=== PATIENT | female | born 1970 | race Caucasian/White ===

== ENCOUNTER 2016-08-17 05:17 | Inpatient (IN) | payer BC ==
[2016-08-14 16:33] VITALS: BMI 26.9
[~2016-08-17] VITALS: Ht 154.9 cm; Wt 64.0 kg
[2016-08-17] VITALS (19 sets, daily range): BP systolic 97–132; BP diastolic 54–82; PULSE 64–103; RESP 12–25; Ht 154.9 cm; Wt 64.0 kg
[2016-08-17] MEDS ORDERED: LIDOCAINE 0.5%/EPI (MDV) 50 ML INJ ONE (06:30)
[2016-08-17] MEDS ORDERED: BUPIVACAINE 0.5% (SDV) 30 ML INJ ONE (06:30)
[2016-08-17] MEDS ORDERED: GELATIN SIZE 100 SPONGE ONE (06:30)
[2016-08-17] MEDS ORDERED: THROMBIN 5000 UNIT VIAL ONE (06:30)
[2016-08-17] MEDS ORDERED: HEPARIN 1000 UNITS/ML 10 ML INJ ONE (06:42)
[2016-08-17] MEDS ORDERED: PROPOFOL 20 ML ONE (07:14)
[2016-08-17] MEDS ORDERED: SUCCINYLCHOLINE CHLORIDE 100 MG/5 ML SYG IV ONE (07:14)
[2016-08-17] MEDS ORDERED: MIDAZOLAM 1 MG/ML 2 ML INJ ONE (07:14)
[2016-08-17] MEDS ORDERED: LIDOCAINE 2% (SDV) 5 ML INJ ONE (07:14)
[2016-08-17] MEDS ORDERED: FENTAnyl 50 MCG/ML VIAL ONE (07:14)
[2016-08-17] MEDS ORDERED: SCOPOLAMINE 1.5 MG PATCH ONE (07:15)
[2016-08-17] MEDS ORDERED: CEFAZOLIN 1 GM INJ ONE (07:30)
--- NOTE | 2016-08-17 07:52 | HPN ---
Date/Time of Note Date/Time of Note DATE: 08/17/16 TIME: 07:51 Interval H&P Admission Note Pt. seen H&P reviewed: No system changes JENNIFER GONZALEZ MD Aug 17, 2016 07:52
[2016-08-17] MEDS ORDERED: KETAMINE 500 MG INJ ONE (08:47)
[2016-08-17] MEDS ORDERED: METOCLOPRAMIDE 10 MG INJ ONE (09:00)
[2016-08-17] MEDS ORDERED: DEXAMETHASONE 4 MG/ML 1 ML INJ ONE (09:00)
[2016-08-17] MEDS ORDERED: ONDANSETRON 4 MG INJ ONE (09:00)
[2016-08-17] MEDS ORDERED: EPHEDrine SULFATE 50 MG/5 ML SYG ONE (09:06)
[2016-08-17] MEDS ORDERED: ACETAMINOPHEN 1000MG/100ML IV 100 ML ONE (09:15)
[2016-08-17] MEDS ORDERED: HYDROmorphONE 2 MG/ML SYG ONE ×2 (09:18→11:21)
[2016-08-17] MEDS ORDERED: THROMBIN(HUM PLAS)/FIBRINOG/CA 5 ML VIAL TOP ONE (09:34)
[2016-08-17] MEDS ORDERED: GELATIN COMPRESSED 100CM SPONGE TOP ONE (09:47)
[2016-08-17] MEDS ORDERED: THROMBIN 5000 UNIT VIAL TOP ONE (09:48)
[2016-08-17] MEDS ORDERED: ROPIVACAINE 0.2% 20 ML VIAL ONE (10:13)
[2016-08-17] MEDS ORDERED: CEFAZOLIN 1 GM/50 ML (PMX) 50 ML IVPB SCH (10:30)
[2016-08-17] MEDS ORDERED: NALOXONE (0.4 MG/ML) INJ IV PRN (10:30)
[2016-08-17] MEDS ORDERED: HYDROCODONE/APAP (10/325) TAB PO PRN (10:30)
[2016-08-17] MEDS ORDERED: BISACODYL 10 MG SUPP PR PRN (10:30)
[2016-08-17] MEDS ORDERED: LABETALOL HCL 20MG INJ ONE (10:36)
[2016-08-17] MEDS ORDERED: LORAZEPAM 2 MG INJ IV PRN ×2 (11:00→13:00)
[2016-08-17] MEDS ORDERED: oxyCODONE 5 MG TAB PO PRN (11:00)
[2016-08-17] MEDS ORDERED: hydrALAzine 20 MG INJ IV PRN (11:00)
[2016-08-17] MEDS ORDERED: HYDROmorphONE (0.2 MG/ML) 10ML SYG IV PRN ×2 (11:00)
[2016-08-17] MEDS ORDERED: PROCHLORPERAZINE 10 MG INJ IV PRN (11:00)
[2016-08-17] MEDS ORDERED: MEPERIDINE 25 MG INJ IV PRN (11:00)
[2016-08-17] MEDS ORDERED: ONDANSETRON 4 MG INJ IV PRN ×2 (11:00→18:00)
[2016-08-17] MEDS ORDERED: FENTAnyl 50 MCG/ML VIAL IV PRN (11:00)
[2016-08-17] MEDS ORDERED: LABETALOL HCL 20MG INJ IV PRN (11:00)
[2016-08-17] MEDS ORDERED: DIPHENHYDRAMINE 50 MG INJ IV PRN (11:00)
--- NOTE | 2016-08-17 12:55 | RADRPT ---
PROCEDURE: XR Abdomen. CLINICAL INDICATION: Abdomen pain. Postop spine surgery. TECHNIQUE: AP supine abdomen x-ray. COMPARISON: None. FINDINGS: The bowel gas pattern is normal. There is no evidence of obstruction. There are no abnormal calcifications overlying the urinary tracts. There has been prior surgery with hardware at the L5-S1 level. A Gottlieb catheter is present in the b ladder. IMPRESSION: 1. Prior fusion at L5-S1. 2. Gottlieb catheter in the bladder. 3. Otherwise unremarkable study. RPTAT: QQ .Servando Weiss MD, MD Date Time Electronically viewed and signed by .Servando Weiss MD, MD on 08/17/2016 12:55 .R/
--- NOTE | 2016-08-17 12:56 | RADRPT ---
PROCEDURE: Intraoperative imaging of the lumbar spine with fluoroscopy. CLINICAL INDICATION: Back pain. Intraoperative. TECHNIQUE: 3 images of the lumbar spine were obtained in the operating room with an image intensif ier. No radiologist was in attendance. 20.3 seconds of fluoroscopy time was used. COMPARISON: No prior study is available for comparison. FINDINGS: For the purposes of this report, the last apparent true disc level is considered to be L5-S1. Based on this, images demonstrate fusion at L5-S1. IMPRESSION: 1. Intraoperative imaging of the lumbar spine. RPTAT: QQ .Servando Weiss MD, MD Date Time Electronically viewed and signed by .Servando Weiss MD, on 08/17/2016 12:56 .R/
--- NOTE | 2016-08-17 12:57 | PN ---
Date/Time of Note Date/Time of Note DATE: 08/17/16 TIME: 12:40 Assessment/Plan VTE Prophylaxis VTE Prophylaxis Intervention: SCD's Lines/Catheters IV Catheter Type (from Nrsg): Peripheral IV Assessment/Plan Assessment/Plan 46 yo female with: 1. S/p L5-S1 total anterior diskectomy and spinal decompression, POD#0 Continue current care and follow up with recommendation from Dr Katz Pain control Flat x 6 hours then PT 2. Anxiety disorder: Ativan prn Prophylaxis: SCDs for DVT ppx, Protonix for GI ppx Disposition: on Observation Subjective 24 Hr Interval Summary Free Text/Dictation Patient POD#0 s/p L5-S1 laminectomy today Patient laying flat and just up from PACU No complaints, waking up from anesthesia Exam/Review of Systems Vital Signs Vitals Vital Signs Date Time Temp Pulse Resp B/P Pulse Ox O2 Delivery O2 Flow Rate FiO2 08/17/16 11:51 100 08/17/16 11:41 99 17 113/60 Nasal Cannula 2.0 08/17/16 10:42 97.3 Exam Constitutional: alert, oriented, well developed Respiratory: clear to auscultation, normal air movement Cardiovascular: nl pulses, regular rate and rhythm Gastrointestinal: non-tender, soft Musculoskeletal: nl extremities to inspection Extremities: normal pulses, other (no edema, clubbing or cyanosis ) Neurological: PARALEGAL SPECIALIST II-XII intact, nl mental status Medications Medications Current Medications Potassium Chloride/Dextrose/ Sod Cl (D5-1/2ns + KCl 20 Meq) 1,000 ml @ 100 mls/ hr Q10H IV ; Start 08/17/16 at 10:20 Acetaminophen/ Hydrocodone Bitart ([place] (10/325)) 2 tab Q4H PRN PO PAIN LEVEL 6-10; Start 08/17/16 at 10:30; Status UNV Hydromorphone HCl 0.2 mg 0.2 mg Q1H PRN IV BREAKTHROUGH PAIN; Start 08/17/16 at 10:30; Stop 08/17/16 at 18:00 Cefazolin Sodium (Ancef 1 Gm/50 ml (Pmx)) 50 ml @ 100 mls/hr Q8H IVPB ; Start 08/17/16 at 10:30; Stop 08/18/16 at 02:59 Ondansetron HCl (Zofran Inj) 4 mg Q6H PRN IV NAUSEA AND/OR VOMITING; Start 08/17 at 18:00 Bisacodyl (Dulcolax Supp) 10 mg DAILY PRN [place] CONSTIPATION; Start 08/17/16 at 10: 30 Docusate Sodium (Colace) 100 mg BID PO ; Start 08/18/16 at 09:00 Pantoprazole (Protonix Iv) 40 mg DAILY@06 IV ; Start 08/18/16 at 06:00 Cyclobenzaprine HCl (Flexeril) 5 mg TID PRN PO MUSCLE SPASMS; Start 08/17/16 at 10:30 Naloxone HCl (Narcan) 0.2 mg Q2M PRN IV RR 8 BREATHS/MIN OR LESS; Start at 10:30 Oxycodone HCl (Roxicodone) 5 mg ONCE PRN PO PAIN LEVEL 1-3; Start 08/17/16 at 11 :00; Status TIAGO CLARK Aug 17, 2016 12:50
[2016-08-17] MEDS: HYDROmorphONE 1 MG/ML SYG IV PRN ×6 (13:14→23:49)
[2016-08-17] MEDS: D5W-0.45 NACL + KCL 20 MEQ 1,000 ML IV SCH ×2 (13:22→23:50)
[2016-08-17] MEDS ORDERED: [UNRECOGNIZED DRUG - REMARK] XX SCH (13:30)
[2016-08-17] MEDS: CEFAZOLIN 1 GM/50 ML (PMX) 50 ML IVPB SCH (18:19)
--- NOTE | 2016-08-17 23:57 | OPR ---
DATE OF OPERATION: PREOPERATIVE DIAGNOSIS: Degenerative disk disease, lumbosacral spine. POSTOPERATIVE DIAGNOSIS: Degenerative disk disease, lumbosacral spine. OPERATION PERFORMED: Anterior retroperitoneal exposure and interbody fusion L5-S1. SURGEON: Elia Luciano MD COSURGEON: Jennifer Gonzalez MD INFORMED CONSENT: Risks, benefits, complications, alternative therapies explained to the patient an d family, consent obtained. Risks and benefits that were explained to the patient and the family, i ncluded but not limited to bleeding, infection, damage to bowel, damage to ureter, wound infection, wound dehiscence, DVT, PE, loss of limb, loss of life. DESCRIPTION OF PROCEDURE: The patient was taken the operating room. After induction of general ane sthesia, prepped and draped in usual sterile fashion. Time-out was called, antibiotic was given, an d I started. A 6 mm incision was made in the left lower quadrant above the symphysis pubis. Incision was taken d own to the subcutaneous tissue, which was then opened using electrocautery. Left anterior rectus sh eath was opened in the direction of the wound. Retroperitoneal space was entered. Bookwalter retra ctor was placed retracting the bowel contents to the right and left rectus muscle to left. We disse cted the left iliac artery and vein. The exposure for L5-S1 was obtained between the right and left common iliac artery and vein. After completion of the diskectomy and fusion, I proceeded with insp ecting the vessels, which appeared to be pulsatile. No evidence of any bleeding was noted. The wou nd was irrigated using antibiotic solution. The anterior rectus sheath was closed using a #1 Vicryl suture in running fashion. The wound was irrigated again and closed in 2 layers of 2-0 Vicryl sutu re for subcutaneous, and Steri-Strips for the skin. The patient tolerated procedure well. Dictated By: ELIA LUCIANO MD FM/NTS Conf#: [id number] DID#: [id number] CC: JENNIFER GONZALEZ MD;*EndCC*
[2016-08-18] VITALS (11 sets, daily range): BP systolic 90–114; BP diastolic 47–64; PULSE 87–117; RESP 20
--- NOTE | 2016-08-18 00:01 | CONS ---
DATE OF ADMISSION: 08/17/2016 DATE OF CONSULTATION: REASON FOR CONSULTATION: Degenerative disk disease. HISTORY OF PRESENT ILLNESS: This is a 46-year-old female who was being admitted with a history of d egenerative disk disease at the level of L5-S1. The patient has a history of degenerative disk dise ase of the lumbosacral spine. PAST MEDICAL HISTORY: Hypertension, hyperlipidemia. PAST SURGICAL HISTORY: Hysterectomy and laparoscopies. ALLERGIES: NONE. SOCIAL HISTORY: No smoking, drinking, or drug use. PHYSICAL EXAMINATION: VITAL SIGNS: Blood pressure is 110/60, pulse is 80, respirations 18. CARDIOVASCULAR: Regular rate and rhythm, normal S1, S2. No murmurs, gallops, or rubs. LUNGS: Clear to auscultation and palpation. ABDOMEN: Soft, nontender, nondistended. EXTREMITIES: Warm. IMPRESSION: Degenerative disk disease, L5-S1. RECOMMENDATIONS: We will proceed with anterior retroperitoneal exposure, interbody fusion at the le jayme of L5-S1. Risks, benefits, complications, alternative therapies explained to the patient, conse nt obtained. Risks and benefits that were explained to the patient included but not limited to blee ding, infection, damage to the bowel, damage to ureter, wound infection, wound dehiscences, loss of limb, loss of life, possibility of blood product transfusions, and others. The high-risk nature of the operation fully explained to the patient. Ample time was given to the patient and the family. All questions answered. Dictated By: ELIA SUH/FAHAD Conf#: [id number] DID#: [id number]
[2016-08-18] MEDS: HYDROmorphONE 1 MG/ML SYG IV PRN ×9 (01:15→22:14)
[2016-08-18] MEDS: CEFAZOLIN 1 GM/50 ML (PMX) 50 ML IVPB SCH ×2 (01:16→10:52)
[2016-08-18] MEDS: D5W-0.45 NACL + KCL 20 MEQ 1,000 ML IV SCH ×2 (06:20→10:52)
[2016-08-18] MEDS: PANTOPRAZOLE 40 MG INJ IV SCH (06:27)
[2016-08-18 06:51] LABS: ADD SCAN DIFF NO
[2016-08-18 07:06] LABS: POTASSIUM 3.6 mmol/L (3.5-5.1)
[2016-08-18 07:09] LABS: BASOPHILS % 0.1 % (0.0-2.0); CALCIUM 8.2 mg/dl (8.4-10.2); CREATININE 0.55 mg/dl (0.44-1.00); HEMATOCRIT 32.2 % (37.0-47.0); HEMOGLOBIN 10.6 g/dl (12.0-16.0); LYMPHOCYTES # 1.9 10^3/ul (0.8-2.9); LYMPHOCYTES % 12.9 % (15.0-51.0); MEAN CORPUSCULAR HEMOGLOBIN 30.7 pg (29.0-33.0); MEAN CORPUSCULAR HGB CONC 32.9 g/dl (32.0-37.0); MEAN CORPUSCULAR VOLUME 93.3 fl (82.0-101.0); MEAN PLATELET VOLUME 9.5 fl (7.4-10.4); MONOCYTE # 1.5 10^3/ul (0.3-0.9); MONOCYTES % 10.2 % (0.0-11.0); NEUTROPHIL # 11.1 10^3/ul (1.6-7.5); NEUTROPHILS % 76.5 % (39.0-77.0); PLATELET COUNT 258 10^3/UL (140-415); RED BLOOD COUNT 3.45 10^6/ul (4.20-5.40); RED CELL DISTRIBUTION WIDTH 13.1 % (11.5-14.5); WHITE BLOOD COUNT 14.5 10^3/ul (4.8-10.8)
[2016-08-18] MEDS: CYCLOBENZAPRINE 10 MG TAB PO PRN ×2 (08:15→19:51)
[2016-08-18] MEDS: DOCUSATE SODIUM 100 MG CAP PO SCH ×2 (08:15→21:00)
--- NOTE | 2016-08-18 14:59 | PN ---
Date/Time of Note Date/Time of Note DATE: 08/18/16 TIME: 14:42 Assessment/Plan VTE Prophylaxis VTE Prophylaxis Intervention: SCD's Lines/Catheters IV Catheter Type (from Nrsg): Peripheral IV Assessment/Plan Assessment/Plan 46 yo female with: 1. S/p L5-S1 total anterior diskectomy and spinal decompression, POD#1 Pain control an issue, patient reports allergy to Percocet, [place], codeine Tolerating Dilaudid so far and reports has done well with Tramadol before Add po tramadol 50 mg po TID for pain control Follow up with recommendation from Dr Katz PT 2. Anxiety disorder: Ativan prn Prophylaxis: SCDs for DVT ppx, Protonix for GI ppx Disposition: Pain control, patient already asking not be discharge until tomorrow. Subjective 24 Hr Interval Summary Free Text/Dictation Patient did ambulate in hallway a little with PT using a walker today but limited by pain She claims allergy to codeine, [place], Percocet and "opiates" but has tolerated Dilaudid so far She has done well with Tramadol before so it has been added to her regimen and [place] d/c'd so far Exam/Review of Systems Vital Signs Vitals Vital Signs Date Time Temp Pulse Resp B/P Pulse Ox O2 Delivery O2 Flow Rate FiO2 08/18/16 12:09 113 08/18/16 11:50 98.0 20 104/64 98 08/17/16 12:30 Nasal Cannula 2.0 Intake and Output 08/17/16 08/17/16 08/18/16 15:00 23:00 07:00 Intake Total 2025 ml 1619 ml Output Total 700 ml 1200 ml Balance 1325 ml -1200 ml 1619 ml Exam Constitutional: alert, oriented, other (uncomfortable due to pain ), well developed Respiratory: clear to auscultation, normal air movement Cardiovascular: nl pulses, regular rate and rhythm Gastrointestinal: non-tender, soft Musculoskeletal: nl extremities to inspection, nl gait and stance Extremities: normal pulses Neurological: HOME APPRAISER II-XII intact, nl mental status, nl speech, other ( ambulation limited by pain ) Results Result Diagram: 08/18/16 0625 08/18/16 0625 Results 24 hrs Laboratory Tests Test 08/18/16 06:25 Anion Gap 13 Basophils # 0.0 Basophils % 0.1 Blood Urea Nitrogen 6 L Calcium Level 8.2 L Carbon Dioxide Level 26 Chloride Level 105 Creatinine 0.55 Eosinophils # 0.0 Eosinophils % 0.0 Glucose Level 115 Hematocrit 32.2 L Hemoglobin 10.6 L Lymphocytes # 1.9 Lymphocytes % 12.9 L Magnesium Level 1.6 L Mean Corpuscular Hemoglobin 30.7 Mean Corpuscular Hemoglobin Concent 32.9 Mean Corpuscular Volume 93.3 Mean Platelet Volume 9.5 Monocytes # 1.5 H Monocytes % 10.2 Neutrophils # 11.1 H Neutrophils % 76.5 Nucleated Red Blood Cells # 0.0 Nucleated Red Blood Cells % 0.0 Platelet Count 258 Potassium Level 3.6 Red Blood Count 3.45 L Red Cell Distribution Width 13.1 Sodium Level 140 White Blood Count 14.5 H Medications Medications Current Medications Potassium Chloride/Dextrose/ Sod Cl (D5-1/2ns + KCl 20 Meq) 1,000 ml @ 100 mls/ hr Q10H IV Last administered on 08/18/16 10:52; Admin Dose 100 MLS/HR; Start at 10:20 Acetaminophen/ Hydrocodone Bitart ([place] (10/325)) 2 tab Q4H PRN PO PAIN LEVEL 6-10; Start 08/17/16 at 10:30; Status UNV Ondansetron HCl (Zofran Inj) 4 mg Q6H PRN IV NAUSEA AND/OR VOMITING; Start 08/17 at 18:00 Bisacodyl (Dulcolax Supp) 10 mg DAILY PRN [place] CONSTIPATION; Start 08/17/16 at 10: 30 Docusate Sodium (Colace) 100 mg BID PO Last administered on 08/18/16 08:15; Admin Dose 100 MG; Start 08/18/16 at 09:00 Pantoprazole (Protonix Iv) 40 mg DAILY@06 IV Last administered on 08/18/16 06: 27; Admin Dose 40 MG; Start 08/18/16 at 06:00 Cyclobenzaprine HCl (Flexeril) 5 mg TID PRN PO MUSCLE SPASMS Last administered on 08/18/16 08:15; Admin Dose 5 MG; Start 08/17/16 at 10:30 Naloxone HCl (Narcan) 0.2 mg Q2M PRN IV RR 8 BREATHS/MIN OR LESS; Start at 10:30 Lorazepam (Ativan) 0.5 mg Q6H PRN IV AGITATION/ANXIETY Last administered on 08/17 13:44; Admin Dose 0.5 MG; Start 08/17/16 at 13:00 Miscellaneous Information (*Order Clarification Bulletin) MEDICATION REQUIRES CLARIFICATION: Q8H XX ; Start 08/17/16 at 17:00 Hydromorphone HCl (Dilaudid) 0.2 mg Q1H PRN IV BREAKTHROUGH PAIN Last administered on 08/18/16 10:52; Admin Dose 0.2 MG; Start 08/17/16 at 20:30 Influenza Virus Vaccine (Fluzone) 0.5 ml ONCE ONCE IM* ; Start 08/19/16 at 09:00 ; Stop 08/19/16 at 09:01 TIAGO BETANCOURT Aug 18, 2016 14:55
[2016-08-18] MEDS ORDERED: MAGNESIUM SULFATE 2 GM/50 ML 50 ML IVPB ONE (15:00)
[2016-08-18] MEDS ORDERED: POTASSIUM CHLORIDE (SR) 20 MEQ TAB PO STA (15:00)
[2016-08-18] MEDS: traMADol 50 MG TAB PO SCH ×2 (15:57→21:25)
[2016-08-19] VITALS (12 sets, daily range): BP systolic 66–116; BP diastolic 56–71; PULSE 107–115; RESP 18–20
[2016-08-19] MEDS: D5W-0.45 NACL + KCL 20 MEQ 1,000 ML IV SCH ×2 (01:33→11:50)
[2016-08-19] MEDS: HYDROmorphONE 1 MG/ML SYG IV PRN ×7 (01:35→18:41)
[2016-08-19] MEDS: PANTOPRAZOLE 40 MG INJ IV SCH (06:21)
[2016-08-19 06:54] LABS: ADD SCAN DIFF NO
[2016-08-19 07:18] LABS: ABNORMAL IP MESSAGE 1; BASOPHILS % 0.2 % (0.0-2.0); EOSINOPHILS % 0.2 % (0.0-7.0); HEMOGLOBIN 11.9 g/dl (12.0-16.0); LYMPHOCYTES # 1.2 10^3/ul (0.8-2.9); LYMPHOCYTES % 6.7 % (15.0-51.0); MEAN CORPUSCULAR HEMOGLOBIN 29.8 pg (29.0-33.0); MEAN CORPUSCULAR HGB CONC 32.2 g/dl (32.0-37.0); MEAN CORPUSCULAR VOLUME 92.7 fl (82.0-101.0); MEAN PLATELET VOLUME 9.4 fl (7.4-10.4); MONOCYTE # 2.3 10^3/ul (0.3-0.9); MONOCYTES % 12.6 % (0.0-11.0); NEUTROPHIL # 14.4 10^3/ul (1.6-7.5); NEUTROPHILS % 79.8 % (39.0-77.0); PLATELET COUNT 283 10^3/UL (140-415); RED BLOOD COUNT 3.99 10^6/ul (4.20-5.40); RED CELL DISTRIBUTION WIDTH 13.2 % (11.5-14.5)
[2016-08-19 07:19] LABS: CREATININE 0.59 mg/dl (0.44-1.00)
[2016-08-19 07:20] LABS: CALCIUM 8.4 mg/dl (8.4-10.2)
[2016-08-19] MEDS: DOCUSATE SODIUM 100 MG CAP PO SCH ×2 (08:31→20:48)
[2016-08-19] MEDS: traMADol 50 MG TAB PO SCH ×4 (08:31→20:48)
[2016-08-19] MEDS ORDERED: INFLUENZA VIRUS VACCINE 0.5 ML (DISPENSING) IM* ONE (09:00)
--- NOTE | 2016-08-19 09:52 | RADRPT ---
PROCEDURE: Chest Radiograph. CLINICAL INDICATION: Leukocytosis TECHNIQUE: Single frontal chest radiograph. COMPARISON: None available FINDINGS: The cardiomediastinal silhouette is within normal limits. There is mild elevation of the right nargis diaphragm. No infiltrate or effusion is seen. The bones are intact. IMPRESSION: 1. Unremarkable chest radiograph. RPTAT: KK .Norm Roberts MD, MD Date Time Electronically viewed and signed by .Norm Roberts MD, on 08/19/2016 09:51 .B/
[2016-08-19] MEDS: CYCLOBENZAPRINE 10 MG TAB PO PRN ×2 (10:06→18:41)
[2016-08-19] MEDS ORDERED: CEPASTAT LOZENGE MT PRN (13:30)
--- NOTE | 2016-08-19 13:43 | PN ---
Date/Time of Note Date/Time of Note DATE: 08/19/16 TIME: 13:28 Assessment/Plan VTE Prophylaxis VTE Prophylaxis Intervention: SCD's Lines/Catheters IV Catheter Type (from Nrsg): Peripheral IV Assessment/Plan Assessment/Plan 46 yo female with: 1. S/p L5-S1 total anterior diskectomy and spinal decompression, POD#2 Pain control an issue, patient reports allergy to Percocet, [place], codeine Tolerating Dilaudid so far and reports has done well with Tramadol before Increase tramadol to 50 mg po QID for pain control and also on higher dose of Flexeril Discussed with David Chahal to discharge today or in AM at the latest Patient needs to be pushed/encourage for PT so HHPT will be ordered at discharge. 2. Leukocytosis: afebrile, CXR wnl and Ua/Ucx pending 3. Anxiety disorder: Ativan prn Prophylaxis: SCDs for DVT ppx, Protonix for GI ppx Disposition: Pain control, UA pending. D/c plan in AM with HH PT, patient ambulatory without walker, PT to be arranged as want to make sure will be motivated ambulate and continue therapy at home. Subjective 24 Hr Interval Summary Free Text/Dictation Patient complaints of pain and pain meds being adjusted, she has declined PT earlier and per notes yesterday afternoon No fevers and no SOB, CXR wnl and Ua/Ucx pending Discussed with Dr Sterling ROY to d/c home with HH PT today or in AM at the latest, patient insistent that she was told she would stay until at least. Plan for d/c home in AM She is ambulating with PT and without a Walker actually.. Advance diet to puree at least, she has been reluctant to advance diet as worried would throw up Exam/Review of Systems Vital Signs Vitals Vital Signs Date Time Temp Pulse Resp B/P Pulse Ox O2 Delivery O2 Flow Rate FiO2 08/19/16 12:29 115 08/19/16 12:05 97.6 18 114/58 96 08/17/16 12:30 Nasal Cannula 2.0 Intake and Output 08/18/16 08/18/16 08/19/16 15:00 23:00 07:00 Intake Total 970 ml 1255 ml Balance 970 ml 1255 ml Exam Constitutional: alert, oriented, other (seems more comfortable today commpared to yesterday ), well developed Respiratory: clear to auscultation, normal air movement Cardiovascular: nl pulses, regular rate and rhythm Gastrointestinal: non-tender, soft Musculoskeletal: nl extremities to inspection Extremities: normal pulses, other (no edema, clubbing or cyanosis ) Neurological: MEDICAL PHOTOGRAPHER II-XII intact, nl mental status, nl speech, other (improving weakness ) Results Result Diagram: 08/19/1661308/19/16613 Results 24 hrs Laboratory Tests Test 08/19/16 06:14 Anion Gap 13 Basophils # 0.0 Basophils % 0.2 Blood Urea Nitrogen 5 L Calcium Level 8.4 Carbon Dioxide Level 26 Chloride Level 101 Creatinine 0.59 Eosinophils # 0.0 Eosinophils % 0.2 Glucose Level 120 Hematocrit 37.0 Hemoglobin 11.9 L Lymphocytes # 1.2 Lymphocytes % 6.7 L Magnesium Level 2.0 Mean Corpuscular Hemoglobin 29.8 Mean Corpuscular Hemoglobin Concent 32.2 Mean Corpuscular Volume 92.7 Mean Platelet Volume 9.4 Monocytes # 2.3 H Monocytes % 12.6 H Neutrophils # 14.4 H Neutrophils % 79.8 H Nucleated Red Blood Cells # 0.0 Nucleated Red Blood Cells % 0.0 Platelet Count 283 Potassium Level 4.0 Red Blood Count 3.99 L Red Cell Distribution Width 13.2 Sodium Level 136 White Blood Count 18.0 #H Medications Medications Current Medications Ondansetron HCl (Zofran Inj) 4 mg Q6H PRN IV NAUSEA AND/OR VOMITING; Start 08/17 at 18:00 Bisacodyl (Dulcolax Supp) 10 mg DAILY PRN [place] CONSTIPATION; Start 08/17/16 at 10: 30 Docusate Sodium (Colace) 100 mg BID PO Last administered on 08/19/16 08:31; Admin Dose 100 MG; Start 08/18/16 at 09:00 Pantoprazole (Protonix Iv) 40 mg DAILY@06 IV Last administered on 08/19/16 06: 21; Admin Dose 40 MG; Start 08/18/16 at 06:00 Naloxone HCl (Narcan) 0.2 mg Q2M PRN IV RR 8 BREATHS/MIN OR LESS; Start at 10:30 Lorazepam (Ativan) 0.5 mg Q6H PRN IV AGITATION/ANXIETY Last administered on 08/17 13:44; Admin Dose 0.5 MG; Start 08/17/16 at 13:00 Hydromorphone HCl (Dilaudid) 0.2 mg Q1H PRN IV BREAKTHROUGH PAIN Last administered on 08/19/16 10:11; Admin Dose 0.2 MG; Start 08/17/16 at 20:30 Cyclobenzaprine HCl (Flexeril) 10 mg TID PRN PO MUSCLE SPASMS Last administered on 08/19/16 10:06; Admin Dose 10 MG; Start 08/18/16 at 23:30 Tramadol HCl (Ultram) 50 mg QID PO ; Start 08/19/16 at 17:00 Phenol (Cepastat Lozenge) 1 lozenge Q2H PRN [place] SORE THROAT; Start 08/19/16 at 13 :30 TIAGO BETANCOURT Aug 19, 2016 13:38
--- NOTE | 2016-08-19 13:44 | PDOCDIS ---
Discharge Instructions CONDITION Patient Condition: Stable HOME CARE INSTRUCTIONS: Special Diet: soft diet ACTIVITY: Activity Restrictions: Slowly Increase Activity FOLLOW UP/APPOINTMENTS Appointments Follow up with Dr Katz within 1 to 2 weeks Follow up with PCP within 1 week Avoid NSAIDs such as ibuprofen, Motrin, Advil or Aleve for the next 3 months. TIAGO BETANCOURT Aug 19, 2016 13:44
[2016-08-19] MEDS ORDERED: DOCU-216 PO (13:46)
[2016-08-19] MEDS ORDERED: TRAM50TA2 PO (13:46)
[2016-08-19] MEDS ORDERED: CYCL-319 PO (13:46)
--- NOTE | 2016-08-19 15:11 | OPR ---
DATE OF OPERATION: 08/19/2016 The patient is postop day #1 status post L5-S1 anterior lumbar interbody instrumented fusion. The p joan's post-surgical incisional pain seems to have improved over time, although the patient still has some pain mostly by the abdominal incision area. The patient has already been able to ambulate with the help of physical therapy. She has also been voiding spontaneously and the Gottlieb catheter h as been removed. The patient so far does not seem to be very hungry. She has tolerated some liquid intake. She has had no vomiting. The patient's abdominal incision is clear, dry and intact with th e dressing in place. The patient's motor examination: Bilateral upper and lower extremities is 5-/ 5 proximally and distally. The patient does say that she has some numbness involving the left dorsu m and the plantar surface of the foot when compared to the right side, although she is still able to feel even light touch on the left side. The patient also has had some spasms of her lower extremit ies. She also does have some tenderness involving both of her calves and thighs in a diffuse fashio n, greater on the left than the right. The patient's hemoglobin is 10.6 and hematocrit is 32.2. He r white blood cell count was 14.5. The patient has been afebrile. I have discussed with the patien t that her post-surgical pain is normal. The pain will improve over time. The patient says that sh e ALLERGIC TO MORPHINE, WHERE SHE GETS ITCHINESS. SHE ALSO SAYS THAT SHE CANNOT TOLERATE NORCO OR O THER CODEINE RELATED MEDICATIONS IT MAKES HER "SICK." The patient is being treated with Trental. She also has Flexeril on board for muscle spasms. I have encouraged the patient to walk more yenifer rrow and if she is walking more and her pain is slowly improving that the patient will be able to be discharged home from a neurosurgical perspective. Also, it is to be noted that the patient's preop erative radiating bilateral lower extremity pain seems to have improved. I have also explained to t he patient that postsurgical numbness also improves over time in general. Once the preoperative rad iating lower extremity pain has improved often the numbness that is usually present even preoperativ sergio becomes more obvious. This does in general improve over time. The patient is to use her LSO bra ce that is at bedside when she is up and ambulating. I have also explained to the patient that she is to avoid nonsteroidal anti-inflammatory drugs such as ibuprofen, Motrin, Advil or Aleve for the n ext 3 months. The patient will follow up with me in clinic in 2 weeks from now. The patient has al ready passed gas and her abdomen is nondistended and that the patient will be advanced to a regular diet and she tolerates it. Dictated By: JENNIFER GONZALEZ MD, SA/FAHAD Conf#: [id number] DID#: [id number]
[2016-08-19 15:31] LABS: ADD UMIC YES; URINE BILIRUBIN (Dip) NEGATIVE (NEGATIVE); URINE BLOOD (Dip) TRACE (NEGATIVE); URINE COLOR LT. YELLOW (YELLOW); URINE GLUCOSE (Dip) NEGATIVE (NEGATIVE); URINE KETONES (Dip) NEGATIVE (NEGATIVE); URINE LEUKOCYTE ESTERASE (Dip) NEGATIVE (NEGATIVE); URINE NITRITE (Dip) NEGATIVE (NEGATIVE); URINE TOTAL PROTEIN (Dip) NEGATIVE (NEGATIVE); URINE UROBILINOGEN (Dip) 0.2 E.U./dL (0.1-1.0)
[2016-08-19 16:08] LABS: BACTERIA,URINE RARE; SQUAMOUS EPITHELIAL CELL,UR MODERATE; URINE RBCS 0-2 /HPF (0)
[2016-08-20] VITALS (8 sets, daily range): BP systolic 95–117; BP diastolic 54–72; PULSE 104–116; RESP 18–20
[2016-08-20] MEDS: HYDROmorphONE 1 MG/ML SYG IV PRN ×3 (00:51→08:56)
[2016-08-20] MEDS: PANTOPRAZOLE 40 MG INJ IV SCH (05:23)
[2016-08-20 06:49] LABS: ADD SCAN DIFF NO
[2016-08-20 06:53] LABS: ABNORMAL IP MESSAGE 1; BASOPHILS % 0.1 % (0.0-2.0); EOSINOPHILS # 0.2 10^3/ul (0.0-0.5); EOSINOPHILS % 1.1 % (0.0-7.0); HEMATOCRIT 34.3 % (37.0-47.0); HEMOGLOBIN 11.5 g/dl (12.0-16.0); LYMPHOCYTES # 1.5 10^3/ul (0.8-2.9); LYMPHOCYTES % 10.9 % (15.0-51.0); MEAN CORPUSCULAR HEMOGLOBIN 30.6 pg (29.0-33.0); MEAN CORPUSCULAR HGB CONC 33.5 g/dl (32.0-37.0); MEAN CORPUSCULAR VOLUME 91.2 fl (82.0-101.0); MEAN PLATELET VOLUME 9.1 fl (7.4-10.4); MONOCYTE # 1.7 10^3/ul (0.3-0.9); MONOCYTES % 12.4 % (0.0-11.0); NEUTROPHIL # 10.6 10^3/ul (1.6-7.5); NEUTROPHILS % 75.1 % (39.0-77.0); PLATELET COUNT 270 10^3/UL (140-415); RED BLOOD COUNT 3.76 10^6/ul (4.20-5.40); RED CELL DISTRIBUTION WIDTH 12.7 % (11.5-14.5); WHITE BLOOD COUNT 14.1 10^3/ul (4.8-10.8)
[2016-08-20 07:15] LABS: POTASSIUM 3.8 mmol/L (3.5-5.1)
[2016-08-20 07:17] LABS: CREATININE 0.64 mg/dl (0.44-1.00)
[2016-08-20 07:18] LABS: CALCIUM 8.6 mg/dl (8.4-10.2)
--- NOTE | 2016-08-20 08:54 | PN ---
Date/Time of Note Date/Time of Note DATE: 08/20/16 TIME: 08:53 Assessment/Plan VTE Prophylaxis VTE Prophylaxis Intervention: ambulation, SCD's Lines/Catheters IV Catheter Type (from Nrsg): Peripheral IV Assessment/Plan Assessment/Plan 46 yo female with: 1. S/p L5-S1 total anterior diskectomy and spinal decompression, POD#2 Pain control an issue, patient reports allergy to Percocet, [place], codeine Tolerating Dilaudid so far and reports has done well with Tramadol before Continue Tramadol to 50 mg po QID for pain control and Flexeril Discussed with Dr Katz, Ok to discharge today Patient needs to be pushed/encourage for PT so HHPT ordered. Avoid NSAIDs such as ibuprofen, Motrin, Advil or Aleve for the next [address] Katz. 2. Leukocytosis: resolving afebrile, CXR wnl and Ua/Ucx negative 3. Anxiety disorder: Ativan prn Prophylaxis: SCDs for DVT ppx, Protonix for GI ppx Disposition: D/c home today with HH PT, patient ambulatory without walker, PT to be arranged as want to make sure will be motivated ambulate and continue therapy at home. Follow up with PCP within 1 week and follow up with Dr Katz in 2 weeks Subjective 24 Hr Interval Summary Free Text/Dictation Patient remains stable, afebrile and seems much more comfortable this AM She wants to go home She has multiple food allergies so has not been able to eat any of the hospital food Ua and Urine cx negative Reports some numbness involving the left dorsum and the plantar surface of the foot when compared to the right side, although she is still able to feel even light touch on the left side. Exam/Review of Systems Vital Signs Vitals Vital Signs Date Time Temp Pulse Resp B/P Pulse Ox O2 Delivery O2 Flow Rate FiO2 08/20/16 08:19 105 08/20/16 07:45 98.6 19 95/54 98 08/17/16 12:30 Nasal Cannula 2.0 Intake and Output 08/19/16 08/19/16 08/20/16 15:00 23:00 07:00 Intake Total 1000 ml 400 ml Balance 1000 ml 400 ml Exam Constitutional: alert, oriented, well developed Respiratory: clear to auscultation, normal air movement Cardiovascular: nl pulses, regular rate and rhythm Gastrointestinal: soft Musculoskeletal: nl extremities to inspection Extremities: normal pulses, other (no edema, clubbing or cyanosis ) 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 YELLOW Urine Glucose NEGATIVE Urine Hemoglobin TRACE Urine Ketones NEGATIVE Urine Leukocyte Esterase NEGATIVE Urine Microscopic RBC 0-2 Urine Microscopic WBC NONE SEEN Urine Nitrite NEGATIVE Urine Specific [place] 1.010 Urine Squamous Epithelial Cells MODERATE Urine Total Protein NEGATIVE Urine Urobilinogen 0.2 E.U./dL Urine pH 5.5 Anion Gap 16 Basophils # 0.0 Basophils % 0.1 Blood Urea Nitrogen 9 Calcium Level 8.6 Carbon Dioxide Level 25 Chloride Level 100 Creatinine 0.64 Eosinophils # 0.2 Eosinophils % 1.1 Glucose Level 91 Hematocrit 34.3 L Hemoglobin 11.5 L Lymphocytes # 1.5 Lymphocytes % 10.9 L Mean Corpuscular Hemoglobin 30.6 Mean Corpuscular Hemoglobin Concent 33.5 Mean Corpuscular Volume 91.2 Mean Platelet Volume 9.1 Monocytes # 1.7 H Monocytes % 12.4 H Neutrophils # 10.6 H Neutrophils % 75.1 Nucleated Red Blood Cells # 0.0 Nucleated Red Blood Cells % 0.0 Platelet Count 270 Potassium Level 3.8 Red Blood Count 3.76 L Red Cell Distribution Width 12.7 Sodium Level 137 White Blood Count 14.1 #H Medications Medications Current Medications Ondansetron HCl (Zofran Inj) 4 mg Q6H PRN IV NAUSEA AND/OR VOMITING; Start 08/17 at 18:00 Bisacodyl (Dulcolax Supp) 10 mg DAILY PRN [place] CONSTIPATION; Start 08/17/16 at 10: 30 Docusate Sodium (Colace) 100 mg BID PO Last administered on 08/19/16 20:48; Admin Dose 100 MG; Start 08/18/16 at 09:00 Pantoprazole (Protonix Iv) 40 mg DAILY@06 IV Last administered on 08/20/16 05: 23; Admin Dose 40 MG; Start 08/18/16 at 06:00 Naloxone HCl (Narcan) 0.2 mg Q2M PRN IV RR 8 BREATHS/MIN OR LESS; Start at 10:30 Lorazepam (Ativan) 0.5 mg Q6H PRN IV AGITATION/ANXIETY Last administered on 08/17 13:44; Admin Dose 0.5 MG; Start 08/17/16 at 13:00 Hydromorphone HCl (Dilaudid) 0.2 mg Q1H PRN IV BREAKTHROUGH PAIN Last administered on 08/20/16 05:19; Admin Dose 0.2 MG; Start 08/17/16 at 20:30 Cyclobenzaprine HCl (Flexeril) 10 mg TID PRN PO MUSCLE SPASMS Last administered on 08/19/16 18:41; Admin Dose 10 MG; Start 08/18/16 at 23:30 Tramadol HCl (Ultram) 50 mg QID PO Last administered on 08/19/16 20:48; Admin Dose 50 MG; Start 08/19/16 at 17:00 Phenol (Cepastat Lozenge) 1 lozenge Q2H PRN MT SORE THROAT; Start 08/19/16 at 13 :30 TIAGO BETANCOURT Aug 20, 2016 08:53
[2016-08-20] MEDS: DOCUSATE SODIUM 100 MG CAP PO SCH (09:13)
[2016-08-20] MEDS: traMADol 50 MG TAB PO SCH (09:13)
== END 2016-08-20 13:10 | disposition home or self-care (01) | DRG 460 ==
LOC: REC 05:17 → TEL 12:37
PROVIDERS: ADMIT Neurological Surgery; ATTEND Neurological Surgery
PROC: 0ST40ZZ Resection of Lumbosacral Disc, Open Approach (ICD-10-PCS; 2016-08-17)
PROC: 0SG30A0 Fusion of Lumbosacral Joint with Interbody Fusion Device, Anterior Approach, Anterior Column, Open Approach (ICD-10-PCS; principal; 2016-08-17 07:30)
DX: M51.37 Other intervertebral disc degeneration, lumbosacral region (principal); I10 Essential (primary) hypertension; M51.27 Other intervertebral disc displacement, lumbosacral region
CPT/HCPCS: 71010; 72100; 74000; 80048; 81001; 81003; 83735; 84703; 85025; 86850; 86900; 86901; 86920; 87086; 88304; 90686; 97116; 97163; 97530; C9113; C9250; J0131; J0330; J0690; J1100; J1170; J1200; J1644; J2060; J2250; J2405; J2765; J2795; J3010; J3475; J3480

== ENCOUNTER 2016-08-22 12:17 | Emergency (ER) | payer BC ==
[~2016-08-22] VITALS: Wt 63.5 kg
[~2016-08-22 12:17] MED LIST: CYCL-319 PO; DOCU-216 PO; TRAM50TA2 PO
[2016-08-22] MEDS ORDERED: SOD CHLORIDE 0.9% 500 ML IV STA (12:37)
[2016-08-22] MEDS ORDERED: ONDANSETRON 4 MG INJ IV STA (12:37)
[2016-08-22] MEDS ORDERED: morphine 4 MG/ML VIAL IV STA (12:37)
[2016-08-22 13:13] LABS: ADD SCAN DIFF NO
[2016-08-22 13:16] LABS: BASOPHILS % 0.4 % (0.0-2.0); EOSINOPHILS # 0.2 10^3/ul (0.0-0.5); EOSINOPHILS % 2.3 % (0.0-7.0); HEMATOCRIT 31.9 % (37.0-47.0); LYMPHOCYTES # 1.7 10^3/ul (0.8-2.9); LYMPHOCYTES % 23.2 % (15.0-51.0); MEAN CORPUSCULAR HEMOGLOBIN 30.5 pg (29.0-33.0); MEAN CORPUSCULAR HGB CONC 34.5 g/dl (32.0-37.0); MEAN CORPUSCULAR VOLUME 88.4 fl (82.0-101.0); MEAN PLATELET VOLUME 8.3 fl (7.4-10.4); MONOCYTE # 0.7 10^3/ul (0.3-0.9); MONOCYTES % 10.2 % (0.0-11.0); NEUTROPHIL # 4.6 10^3/ul (1.6-7.5); NEUTROPHILS % 63.5 % (39.0-77.0); PLATELET COUNT 395 10^3/UL (140-415); RED BLOOD COUNT 3.61 10^6/ul (4.20-5.40); RED CELL DISTRIBUTION WIDTH 12.2 % (11.5-14.5); WHITE BLOOD COUNT 7.3 10^3/ul (4.8-10.8)
[2016-08-22 13:25] LABS: POTASSIUM 3.1 mmol/L (3.5-5.1)
[2016-08-22 13:27] LABS: CREATININE 0.61 mg/dl (0.44-1.00)
[2016-08-22 13:28] LABS: CALCIUM 8.7 mg/dl (8.4-10.2); INR 1.05; PROTIME 13.7 Sec (12.2-14.2); PT RATIO 1.1
[2016-08-22 13:29] LABS: PARTIAL THROMBOPLASTIN TIME 36.7 Sec (25.0-35.0)
[2016-08-22] MEDS ORDERED: HYDROmorphONE 1 MG/ML SYG IV STA ×2 (13:43→17:46)
--- NOTE | 2016-08-22 14:04 | RADRPT ---
PROCEDURE: Ultrasound of the left lower extremity venous system. CLINICAL INDICATION: Left leg pain and swelling, deep venous thrombosis TECHNIQUE: Ruff scale with and without compression, color doppler, spectral doppler of the venous system of the left lower extremity was performed. Venous augmentation maneuvers were utilized. COMPARISON: No prior studies are available for comparison. FINDINGS: Common femoral vein: Patent. Superficial femoral vein: Patent. Popliteal vein: Patent. Calf veins: Patent. No soft tissue abnormalities are identified. IMPRESSION: No evidence of a deep vein thrombosis within the left lower extremity. RPTAT: AADD .Kendall Garcia MD, MD Date Time Electronically viewed and signed by .Kendall Garcia MD, MD on 08/22/2016 14:03 .B/
--- NOTE | 2016-08-22 14:14 | RADRPT ---
PROCEDURE: Arterial ultrasound of the left lower extremity. CLINICAL INDICATION: Left lower extremity pain, peripheral vascular disease, unspecified TECHNIQUE: Ruff scale, color doppler, and spectral doppler ultrasound images of the arterial syste m of the left lower extremity COMPARISON: No prior studies are available for comparison. FINDINGS: Location Left JGD210 cm/sec PSFA95 cm/sec MSFA81 cm/sec DSFA75 cm/sec POP33 cm/sec ATA44 cm/sec PTA43 cm/sec DPA42 cm/sec Ankle brachial index: Not performed. Plaque burden: None. IMPRESSION: Patent left lower extremity arterial system without evidence of focal stenosis or occlusion. RPTAT: AADD .Kendall Garcia MD, MD Date Time Electronically viewed and signed by .Kendall Garcia MD, on 08/22/2016 14:14 .B/
[2016-08-22] MEDS ORDERED: IOHEXOL 100 ML ONE (14:40)
[2016-08-22] MEDS ORDERED: IOHEXOL 350MG/ML 50 ML BTL ONE (14:40)
[2016-08-22] MEDS ORDERED: SOD CHLORIDE 0.9% 100 ML ONE (14:41)
--- NOTE | 2016-08-22 17:55 | RADRPT ---
PROCEDURE: CT angiogram bilateral lower extremity runoff with contrast CLINICAL INDICATION: Injury. Posterior left swelling. Cold foot. TECHNIQUE:: Contiguous axial images the pelvis and bilateral lower extremities to the feet were obta ined after the injection of 100 cc of Isovue 370. Images reconstructed in coronal, sagittal, 3-D for mat using maximum intensity projection technique. The calculated Dose Length Product (DLP) = 51 mGy- cm. Exam CTDlvol = 2031 mGy COMPARISON: None FINDINGS: CTA pelvis: Bilateral common iliac arteries and external iliac arteries are patent and normal in a ppearance. Bilateral common femoral arteries are normal in appearance. CTA Bilateral Extremities: There is normal symmetric opacification of the bilateral common femoral, superficial femoral and popliteal arteries. The right lower extremity trifurcation vessels to the f oot are patent including the peroneal and anterior and posterior tibial arteries. The right dorsali s pedis arteries is well visualized. The a left lower extremity vessels below the knee from the tri furcation fluid are visualized although are slightly smaller with decreased contrast dislocation dis tally at the level of the just above the ankle to the foot as compared to the right. There is no fo harjinder stenosis or narrowing to suggest atherosclerotic plaque. There is no occlusion or dissection. There is no contrast extravasation. There is no aneurysm. Additional findings: The patient status post recent anterior fusion of 5 S1 with expected postoperat keturah infiltration in gas in the anterior paraspinal region surrounding the L5 vertebral body. There are postoperative changes from a left ventral pelvic approach with mild subcutaneous infiltration an d gas, small amount of gas within the left ventral pelvic wall and small amount of gas and fluid in the anterior aspect of the left nargis pelvis. There is no focal collection. There is no evidence fo r mass effect or effacement of the adjacent the iliac vessels. Remainder the pelvic contents are unr emarkable. Examination of the lower extremities is without evidence for subcutaneous infiltration to suggest ed dianne or cellulitis. No focal collection or mass identified. The regional musculature and bones are normal in appearance. IMPRESSION: 1. Normal CT angiogram of the bilateral lower extremities from the pelvis to the level popliteal art eries. 2. Normal examination right lower extremity from level of stool arteries to the feet. 3. Asymmetric slightly decreased caliber and diminish contrast opacification of the left lower extr emity vessels below the popliteal artery without a focal/discrete stenosis. No extrinsic compressio n or evidence for a cellulitis/myositis.. A vasculitis cannot be excluded. 3. Status post lumbar spine anterior fusion L5-S1 with expected postoperative changes in the pelvis and left ventral pelvic wall. No focal hematoma or collection. No mass effect upon the iliac vesse ls. RPTAT: HMVK .Julio Dickson MD, MD Date Time Electronically viewed and signed by .Julio Dickson MD, on 08/22/2016 17:55 .K/
[2016-08-22 18:55] VITALS: BP 100/81; PULSE 104; RESP 22
[2016-08-22] MEDS ORDERED: METH500T PO (18:55)
[2016-08-22] MEDS ORDERED: NAPR-685 PO (18:55)
[2016-08-22] MEDS ORDERED: TRAM50TA2 PO (18:55)
--- NOTE | 2016-08-22 19:06 | ERD ---
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 NO CP OR SOB. NO DISCOLORATION HPI This 46-year-old female presents emergency room because she has severe left leg pain overnight. She did have a lumbar spinal fusion of L5 and S1-2 days ago. Her entire leg is cold compared to the other leg. She still has good motor control and is ambulatory. ROS All systems reviewed and are negative except as per history of present illness. Medications Home Meds Active Scripts Naproxen* (Naproxen*) 375 Mg Tablet, 375 MG PO BID Y for PAIN, #20 TAB Prov:ELENA PEACE DO 08/22/16 Methocarbamol* (Robaxin*) 500 Mg Tab, 500 MG PO Q8, #20 TAB Prov:ELENA PEACE DO 08/22/16 Tramadol HCl (Tramadol HCl) 50 Mg Tablet, 50 MG PO Q6H Y for PAIN, #43 TAB Prov:KOBIELENA DO 08/22/16 Tramadol HCl (Tramadol HCl) 50 Mg Tablet, 50 MG PO QID, #60 TAB Prov:TIAGO BETANCOURT 08/19/16 Docusate Sodium (Dok) 100 Mg Capsule, 100 MG PO BID, #30 CAP Prov:TIAGO BETANCOURT F 08/19/16 Cyclobenzaprine Hcl* (Cyclobenzaprine Hcl*) 10 Mg Tablet, 10 MG PO TID Y for MUSCLE SPASMS, #60 TAB Prov:TIAGO BETANCOURT 08/19/16 Allergies Allergies: Coded Allergies: codeine (Verified Allergy, Severe, TACHYCARDIA, 08/14/16) amoxicillin (Verified Allergy, Unknown, 08/17/16) AUGMENTIN RASH PER [employer] [facility] clavulanic acid (Verified Allergy, Unknown, 08/17/16) AUGMENTIN RASH PER [employer] [facility] morphine (Verified Adverse Reaction, Mild, itching, nausea, 08/22/16) Uncoded Allergies: OPIATES (Allergy, Severe, RASH, 08/14/16) PMhx/Soc History of Surgery: Yes Anesthesia Reaction: No Hx Neurological Disorder: No Hx Respiratory Disorders: No Hx Cardiac Disorders: No Hx Psychiatric Problems: No Hx Miscellaneous Medical Probl: No Hx Alcohol Use: No Hx Substance Use: No Hx Tobacco Use: No Smoking Status: Never smoker Physical Exam Vitals Vital Signs Date Time Temp Pulse Resp B/P Pulse Ox O2 Delivery O2 Flow Rate FiO2 08/22/16 18:55 104 22 100/81 99 Room Air 08/22/16 17:03 93 18 102/72 94 Room Air 08/22/16 14:29 91 24 100/74 100 Room Air 08/22/16 12:22 99.0 113 20 124/73 96 Physical Exam Const: [] No distress Head: Atraumatic Eyes: Normal Conjunctiva ENT: Normal External Ears, Nose and Mouth. Neck: Full range of motion..~ No meningismus. Resp: Clear to auscultation bilaterally Cardio: Regular rate and rhythm, no murmurs Abd: Soft, non tender, non distended. Normal bowel sounds Skin: No petechiae or rashes Back: No midline or flank tenderness. Well-healing surgical site with no signs of infection Ext: No cyanosis, or edema, left leg is actually suitably cold compared to the left. I will feel posterior tibial pulse, dorsalis pedis pulses palpable but decreased compared to the right side. Patient does have tenderness to palpation throughout entire leg. Neur: Awake and alert and oriented 3, no focal deficits, sensation intact. Psych: Normal Mood and Affect Result Diagram: 08/22/16 1308 08/22/16 1308 Results 24 hrs Laboratory Tests Test 08/22/16 13:08 Activated Partial Thromboplast Time 36.7Sec Anion Gap 13 Basophils # 0.010^3/ul Basophils % 0.4% Blood Urea Nitrogen 7mg/dl Calcium Level 8.7mg/dl Carbon Dioxide Level 29mmol/L Chloride Level 98mmol/L Creatinine 0.61mg/dl Eosinophils # 0.210^3/ul Eosinophils % 2.3% Glucose Level 94mg/dl Hematocrit 31.9% Hemoglobin 11.0g/dl INR International Normalized Ratio 1.05 Lymphocytes # 1.710^3/ul Lymphocytes % 23.2% Mean Corpuscular Hemoglobin 30.5pg Mean Corpuscular Hemoglobin Concent 34.5g/dl Mean Corpuscular Volume 88.4fl Mean Platelet Volume 8.3fl Monocytes # 0.710^3/ul Monocytes % 10.2% Neutrophils # 4.610^3/ul Neutrophils % 63.5% Nucleated Red Blood Cells # 0.010^3/ul Nucleated Red Blood Cells % 0.0/100WBC Platelet Count 81373^3/UL Potassium Level 3.1mmol/L Prothrombin Time 13.7Sec Prothrombin Time Ratio 1.1 Red Blood Count 3.6110^6/ul Red Cell Distribution Width 12.2% Sodium Level 137mmol/L White Blood Count 7.310^3/ul Current Medications Medications (Trade) Dose Ordered Sig/Neftali Route PRN Reason Start Time Stop Time Status Last Admin Dose Admin Sodium Chloride (NS) 500 ml @ 500 mls/hr Q1H STAT IV 08/22/16 12:37 08/22/16 13:36 DC 08/22/16 13:37 Morphine Sulfate (morphine) 4 mg ONCE STAT IV 08/22/16 12:37 08/22/16 12:48 DC Ondansetron HCl (Zofran Inj) 4 mg ONCE STAT IV 08/22/16 12:37 08/22/16 12:48 DC 08/22/16 13:38 Hydromorphone HCl (Dilaudid) 1 mg ONCE STAT IV 08/22/16 13:43 08/22/16 13:46 DC 08/22/16 14:01 Iohexol 50 ml 50 ml STK-MED ONCE .ROUTE 08/22/16 14:40 08/22/16 14:41 DC Iohexol 100 ml @ ud STK-MED ONCE .ROUTE 08/22/16 14:40 08/22/16 14:41 DC Sodium Chloride (NS) 100 ml @ ud STK-MED ONCE .ROUTE 08/22/16 14:41 08/22/16 14:42 DC Hydromorphone HCl (Dilaudid) 1 mg ONCE STAT IV 08/22/16 17:46 08/22/16 17:47 DC 08/22/16 18:01 Procedures/MDM 46-year-old female postop with left leg claudication and cold extremities decreased pulses. She indicated a likely circulation deficit, however, Extensive diagnostic imaging was performed which show patent vessels along the entire course of the leg. Is possibly some inflammation from the surgery compressing on the iliac vessel however no signs of emergent limb threat. No signs of infection either. Patient was hydrated with normal saline given Dilaudid 1 mg for pain which was required 2 doses. She also given Zofran for potential nausea. She was feeling better in emergency room. I do feel comfortable discharging her home because of this very thorough workup. I'm discharging her with refill of her tramadol as well as Robaxin and follow-up as she has scheduled. CT left lower extremity with runoff. Completely patent vessels throughout left leg. No fractures or dislocations. No soft tissue injuries visible. Venous duplex ultrasound left lower extremity: No DVT Venous arterial study. No limitations of flow arterially throughout entire left leg. Departure Diagnosis: Primary Impression: Post-op pain Additional Impressions: Leg pain, left Anemia Condition: Stable Patient Instructions: Managing Post-Op Pain at Home: Medications Additional Instructions: Call your primary care doctor TOMORROW for an appointment during the next 2-3 days.See the doctor sooner or return here if your condition worsens before your appointment time. ELENA PEACE DO Aug 22, 2016 19:06
== END 2016-08-22 19:05 | disposition home or self-care (01) ==
LOC: E/R 12:17
DX: G89.18 Other acute postprocedural pain (principal); R40.2252 Coma scale, best verbal response, oriented, at arrival to emergency department; D64.9 Anemia, unspecified; R40.2142 Coma scale, eyes open, spontaneous, at arrival to emergency department; R40.2362 Coma scale, best motor response, obeys commands, at arrival to emergency department
CPT/HCPCS: 36415; 73706; 80048; 85025; 85610; 85730; 93005; 93926; 93971; 96374; 96375; 96376; 99285; J1170; J7040; Q9967; Z7610; J2270

== ENCOUNTER 2016-09-03 22:29 | Emergency (ER) | payer BC ==
[~2016-09-03] VITALS: Ht 154.9 cm; Wt 61.5 kg
[~2016-09-03 22:29] MED LIST changes: +METH500T PO; +NAPR-685 PO
[2016-09-03 22:33] VITALS: Ht 154.9 cm; Wt 61.5 kg
[2016-09-03] MEDS ORDERED: HYDR-902 PO (23:01)
[2016-09-03] MEDS ORDERED: BACL10TA PO (23:01)
--- NOTE | 2016-09-03 23:08 | ERA ---
ER Documentation Chief Complaint Date/Time DATE: 09/03/16 TIME: 23:08 Chief Complaint vmoting X3 days,body pain HPI The patient is a 46-year-old female, presenting to the ER because of vomiting and abdominal pain intermittently for the last 3 days. She vomited initially foot then mucus, associated with constipation and dysuria. She denies fever, chills, neck pain, chest pain, dyspnea. She had lumbar fusion L5 and S1 on August 17, 2016 and came back to the hospital on August 22, 2016 for postoperative pain. She did have negative CTA of lower extremity, venous and arterial ultrasound of the lower extremity. She is currently taking [place], baclofen, tramadol for her back pain. Past medical history: Chronic back pain Past surgical history: Hysterectomy ROS All systems reviewed and are negative except as per history of present illness. Medications Home Meds Active Scripts Ondansetron (Ondansetron Odt) 4 Mg Tab.rapdis, 4 MG PO Q6H Y for NAUSEA AND/OR VOMITING, #10 TAB Prov:JULIO DE LEON MD 09/04/16 Tramadol HCl (Tramadol HCl) 50 Mg Tablet, 50 MG PO Q6H Y for PAIN, #43 TAB Prov:ELENA PEACE DO 08/22/16 Reported Medications Hydrocodone/Acetaminophen ([place] 10-325 Tablet) 1 Each Tablet, 1 EACH PO Q6H, TAB 09/03/16 Baclofen* (Baclofen*) 10 Mg Tablet, 10 MG PO Q8 Y for PRN, TAB 09/03/16 Discontinued Scripts Naproxen* (Naproxen*) 375 Mg Tablet, 375 MG PO BID Y for PAIN, #20 TAB Prov:ELENA PEACE DO 08/22/16 Methocarbamol* (Robaxin*) 500 Mg Tab, 500 MG PO Q8, #20 TAB Prov:ELENA PEACE DO 08/22/16 Tramadol HCl (Tramadol HCl) 50 Mg Tablet, 50 MG PO QID, #60 TAB Prov:TIAGO BETANCOURT 08/19/16 Docusate Sodium (Dok) 100 Mg Capsule, 100 MG PO BID, #30 CAP Prov:TIAGO BETANCOURT 08/19/16 Cyclobenzaprine Hcl* (Cyclobenzaprine Hcl*) 10 Mg Tablet, 10 MG PO TID Y for MUSCLE SPASMS, #60 TAB Prov:TIAGO BETANCOURT 08/19/16 Allergies Allergies: Coded Allergies: codeine (Verified Allergy, Severe, TACHYCARDIA, 09/03/16) amoxicillin (Verified Allergy, Unknown, 09/03/16) AUGMENTIN RASH PER [employer] KAVITA clavulanic acid (Verified Allergy, Unknown, 09/03/16) AUGMENTIN RASH PER [employer] KAVITA morphine (Verified Adverse Reaction, Mild, itching, nausea, 09/03/16) Uncoded Allergies: OPIATES (Allergy, Severe, RASH, 08/14/16) PMhx/Soc History of Surgery: Yes (SPINAL FUSION) Anesthesia Reaction: No Hx Neurological Disorder: No Hx Respiratory Disorders: No Hx Cardiac Disorders: No Hx Psychiatric Problems: No Hx Miscellaneous Medical Probl: No Hx Alcohol Use: No Hx Substance Use: No Hx Tobacco Use: No Smoking Status: Unknown if ever smoked Physical Exam Vitals Vital Signs Date Time Temp Pulse Resp B/P Pulse Ox O2 Delivery O2 Flow Rate FiO2 09/04/16 02:31 66 17 112/80 97 Room Air 09/04/16 01:37 98.2 72 20 128/70 98 Room Air 09/03/16 22:33 99.0 108 18 123/72 100 Physical Exam Const: No acute distress. Head: Atraumatic. Eyes: Normal Conjunctiva. ENT: Normal External Ears, Nose and Mouth. Neck: Full range of motion. No meningismus. Resp: Clear to auscultation bilaterally. Cardio: Regular rate and rhythm, no murmurs. Abd: Soft, non distended, normal bowel sounds, vague and diffuse abdominal tenderness, no rigidity, rebound, CVA tenderness Skin: No petechiae or rashes. Back: No midline or flank tenderness. Ext: No cyanosis, or edema. Neur: Awake and alert. No focal deficit Psych: Normal Mood and Affect. Result Diagram: 09/03/16 7569 09/03/16 4728 Results 24 hrs Laboratory Tests Test 09/03/16 23:55 09/04/16 02:10 White Blood Count 8.810^3/ul Red Blood Count 4.4110^6/ul Hemoglobin 12.7g/dl Hematocrit 38.9% Mean Corpuscular Volume 88.2fl Mean Corpuscular Hemoglobin 28.8pg Mean Corpuscular Hemoglobin Concent 32.6g/dl Red Cell Distribution Width 12.2% Platelet Count 16282^3/UL Mean Platelet Volume 8.8fl Neutrophils % 66.9% Lymphocytes % 23.2% Monocytes % 8.6% Eosinophils % 0.6% Basophils % 0.5% Nucleated Red Blood Cells % 0.0/100WBC Neutrophils # 5.910^3/ul Lymphocytes # 2.110^3/ul Monocytes # 0.810^3/ul Eosinophils # 0.110^3/ul Basophils # 0.010^3/ul Nucleated Red Blood Cells # 0.010^3/ul Platelet Estimate PLT APPEAR INCREASED Sodium Level 139mmol/L Potassium Level 3.9mmol/L Chloride Level 99mmol/L Carbon Dioxide Level 26mmol/L Anion Gap 18 Blood Urea Nitrogen 12mg/dl Creatinine 0.64mg/dl Glucose Level 103mg/dl Calcium Level 9.7mg/dl Total Bilirubin 0.2mg/dl Direct Bilirubin 0.00mg/dl Indirect Bilirubin 0.2mg/dl Aspartate Amino Transf (AST/SGOT) 33IU/L Alanine Aminotransferase (ALT/SGPT) 29IU/L Alkaline Phosphatase 147IU/L Total Protein 8.0g/dl Albumin 4.3g/dl Globulin 3.70g/dl Albumin/Globulin Ratio 1.16 Lipase 111U/L Bedside Urine pH (LAB) 6.0 Bedside Urine Protein (LAB) Trace Bedside Urine Glucose (UA) Negative Bedside Urine Ketones (LAB) Negative Bedside Urine Blood Trace-intact Bedside Urine Nitrite (LAB) Negative Bedside Urine Leukocyte Esterase (L Negative Current Medications Medications (Trade) Dose Ordered Sig/Neftali Route PRN Reason Start Time Stop Time Status Last Admin Dose Admin Sodium Chloride (NS) 1,000 ml @ 1,000 mls/hr Q1H STAT IV 09/03/16 23:29 09/04/16 00:28 DC 09/03/16 23:55 Ondansetron HCl (Zofran Inj) 4 mg ONCE STAT IV 09/03/16 23:29 09/03/16 23:35 DC 09/03/16 23:55 Hydromorphone HCl 1 mg 1 mg ONCE STAT IV 09/03/16 23:29 09/03/16 23:35 DC 09/03/16 23:55 Sodium Chloride (NS) 100 ml @ ud [facility]-MED ONCE .ROUTE 09/04/16 00:29 09/04/16 00:30 DC 09/04/16 00:59 Iohexol (Omnipaque 300mg/ ml) 150 ml [facility]-MED ONCE .ROUTE 09/04/16 00:29 09/04/16 00:30 DC 09/04/16 00:58 Procedures/MDM [place] [address] Radiology Main Line: [phone] DIAGNOSTIC IMAGING REPORT Patient: FRANK LAND : 1970 Age: 46 Sex: F MR #: [id number] DOS: 09/03/16 0000 Ordering MD: JULIO DE LEON MD Location: E/R Room/Bed: PROCEDURE: XR Chest. CLINICAL INDICATION: Shortness of breath. TECHNIQUE: Single frontal chest x-ray. COMPARISON: 08/19/2016 FINDINGS: The cardiomediastinal silhouette is unremarkable. The lungs are clear. No focal infiltrate is seen. There is no pleural effusion. There is no pneumothorax. The osseous structures are unremarkable. IMPRESSION: 1. No active disease. RPTAT: HMVK .Julio Dickson MD, MD Date Time Electronically viewed and signed by .Julio Dickson MD, MD on 09/04/2016 00:28 .K/ CC: JULIO DE LEON MD [place] [address] Radiology Main Line: [phone] DIAGNOSTIC IMAGING REPORT Patient: FRANK LAND : 1970 Age: 46 Sex: F MR #: [id number] DOS: 09/03/16 2329 Ordering MD: JULIO DE LEON MD Location: E/R Room/Bed: PROCEDURE: CT abdomen and pelvis with intravenous contrast. CLINICAL INDICATION: Pain. TECHNIQUE: CT of the abdomen/pelvis was performed utilizing axial images with reconstructions in sagittal and coronal planes after uneventful administration of 100 cc Omnipaque 300. The administered radiation dose is CTDI 7.3 mGy, DLP 414 mGy-cm. COMPARISON: 08/22/2016 FINDINGS: Visualized Chest: The visualized lung bases are clear. Abdomen: The liver, spleen, pancreas, gallbladder,and adrenal glands are unremarkable. The kidneys are without hydronephrosis. No definite urinary calculi are seen. A small cyst is noted along the anterior interpolar left kidney. There is no evidence of bowel obstruction. The appendix is normal. No intra- abdominal free air is seen. There is no evidence of intra-abdominal adenopathy or free fluid. Pelvis: Again noted is a recent anterior fusion of the L5 and S1 levels. There is a presacral and prevertebral of the collection on the left which measures 4 x 1.8 cm in greatest axial dimensions and 3.6 cm cranial caudally. This is decreased in size compared to the collection seen previously. Gas within the collection is no longer present. Some minimal wall thickening of the collection is present. Some postoperative stranding within the lower anterior abdominal wall and left pelvic sidewall regions are decreased. No incisional fluid collections are seen. Prior hysterectomy is noted. There is no pelvic adenopathy or free fluid. The urinary bladder is unremarkable. Osseous structures: Unremarkable. IMPRESSION: Postoperative changes related to recent anterior fusion of the L5 and S1 levels. A small postoperative collection in the presacral and prevertebral spaces in the region is slightly decreased in size compared to the prior examination and of doubtful clinical concern although infection is technically not excluded. No acute intra-abdominal findings. RPTAT: HIKT .Joe Holman MD, Date Time Electronically viewed and signed by .Joe Holman MD, on 09/04/2016 01:36 .T/ CC: JULIO DE LEON MD MEDICAL MAKING DECISION: The patient is a 46-year-old female, presenting with acute abdominal pain of unclear etiology, acute dehydration. She was treated with 1 L normal saline, Dilaudid 1 mg IV for pain and Zofran formula IV for nausea with good response. The differential diagnoses considered include but are not limited to intra-abdominal abscess, postoperative pain, cholelithiasis, cholecystitis, cystitis, pancreatitis, hepatitis, gastritis, peptic ulcer disease, gastric ulcer, appendicitis, diverticulitis, cholangitis, choledocholithiasis, partial small bowel obstruction. Departure Diagnosis: Primary Impression: Abdominal pain Additional Impression: Dehydration Condition: Good Comments She was discharged with Zofran ODT, advised to continue [place] and baclofen I discussed the findings with the patient. I advised the patient to follow-up with the primary physician in about 1-2 days, sooner if needed and return if any concern. The patient's blood pressure was elevated (>120/80) but appears stable without evidence of hypertension emergency or urgency. The patient was counseled about the risks of hypertension and urged to pursue outpatient monitoring and therapy within a week with their primary care physician. JULIO DE LEON MD Sep 03, 2016 23:08
[2016-09-03] MEDS ORDERED: SOD CHLORIDE 0.9% 1,000 ML IV STA (23:29)
[2016-09-03] MEDS ORDERED: HYDROmorphONE 1 MG/ML SYG IV STA (23:29)
[2016-09-03] MEDS ORDERED: ONDANSETRON 4 MG INJ IV STA (23:29)
[2016-09-04 00:27] LABS: ADD SCAN DIFF NO
[2016-09-04] MEDS ORDERED: SOD CHLORIDE 0.9% 100 ML ONE (00:29)
[2016-09-04] MEDS ORDERED: IOHEXOL 300MG/ML 150 ML BTL ONE (00:29)
--- NOTE | 2016-09-04 00:29 | RADRPT ---
PROCEDURE: XR Chest. CLINICAL INDICATION: Shortness of breath. TECHNIQUE: Single frontal chest x-ray. COMPARISON: 08/19/2016 FINDINGS: The cardiomediastinal silhouette is unremarkable. The lungs are clear. No focal infiltrate is seen. There is no pleural effusion. There is no pneumothorax. The osseous structures are unremarkable. IMPRESSION: 1. No active disease. RPTAT: HMVK .Julio Dickson MD, Date Time Electronically viewed and signed by .Julio Dickson MD, MD on 09/04/2016 00:28 .K/
[2016-09-04 00:33] LABS: BASOPHILS % 0.5 % (0.0-2.0); EOSINOPHILS # 0.1 10^3/ul (0.0-0.5); EOSINOPHILS % 0.6 % (0.0-7.0); HEMATOCRIT 38.9 % (37.0-47.0); HEMOGLOBIN 12.7 g/dl (12.0-16.0); LYMPHOCYTES # 2.1 10^3/ul (0.8-2.9); LYMPHOCYTES % 23.2 % (15.0-51.0); MEAN CORPUSCULAR HEMOGLOBIN 28.8 pg (29.0-33.0); MEAN CORPUSCULAR HGB CONC 32.6 g/dl (32.0-37.0); MEAN CORPUSCULAR VOLUME 88.2 fl (82.0-101.0); MEAN PLATELET VOLUME 8.8 fl (7.4-10.4); MONOCYTE # 0.8 10^3/ul (0.3-0.9); MONOCYTES % 8.6 % (0.0-11.0); NEUTROPHIL # 5.9 10^3/ul (1.6-7.5); NEUTROPHILS % 66.9 % (39.0-77.0); RED BLOOD COUNT 4.41 10^6/ul (4.20-5.40); RED CELL DISTRIBUTION WIDTH 12.2 % (11.5-14.5); WHITE BLOOD COUNT 8.8 10^3/ul (4.8-10.8)
[2016-09-04 00:42] LABS: PLATELET COUNT 652 10^3/UL (140-415)
[2016-09-04 00:45] LABS: ALBUMIN 4.3 g/dl (3.3-4.9)
[2016-09-04 00:46] LABS: POTASSIUM 3.9 mmol/L (3.5-5.1)
[2016-09-04 00:47] LABS: CREATININE 0.64 mg/dl (0.44-1.00)
[2016-09-04 00:48] LABS: ALBUMIN/GLOBULIN RATIO 1.16; BILIRUBIN,INDIRECT 0.2 mg/dl (0-1.1); BILIRUBIN,TOTAL 0.2 mg/dl (0.2-1.3)
[2016-09-04 00:49] LABS: CALCIUM 9.7 mg/dl (8.4-10.2)
[2016-09-04 01:32] LABS: PLATELET ESTIMATE PLT APPEAR INCREASED
[2016-09-04 01:37] VITALS: TEMP 98.2
--- NOTE | 2016-09-04 01:37 | RADRPT ---
PROCEDURE: CT abdomen and pelvis with intravenous contrast. CLINICAL INDICATION: Pain. TECHNIQUE: CT of the abdomen/pelvis was performed utilizing axial images with reconstructions in s agittal and coronal planes after uneventful administration of 100 cc Omnipaque 300. The administered radiation dose is CTDI 7.3 mGy, DLP 414 mGy-cm. COMPARISON: 08/22/2016 FINDINGS: Visualized Chest: The visualized lung bases are clear. Abdomen: The liver, spleen, pancreas, gallbladder,and adrenal glands are unremarkable. The kidneys are without hydronephrosis. No definite urinary calculi are seen. A small cyst is noted along the anterior interpolar left kidney. There is no evidence of bowel obstruction. The appendix is normal. No intra-abdominal free air is seen. There is no evidence of intra-abdominal adenopathy or free fluid. Pelvis: Again noted is a recent anterior fusion of the L5 and S1 levels. There is a presacral and preverteb ral of the collection on the left which measures 4 x 1.8 cm in greatest axial dimensions and 3.6 cm cranial caudally. This is decreased in size compared to the collection seen previously. Gas within the collection is no longer present. Some minimal wall thickening of the collection is present. S ome postoperative stranding within the lower anterior abdominal wall and left pelvic sidewall region s are decreased. No incisional fluid collections are seen. Prior hysterectomy is noted. There is no pelvic adenopathy or free fluid. The urinary bladder is u nremarkable. Osseous structures: Unremarkable. IMPRESSION: Postoperative changes related to recent anterior fusion of the L5 and S1 levels. A small postoperat keturah collection in the presacral and prevertebral spaces in the region is slightly decreased in size compared to the prior examination and of doubtful clinical concern although infection is technically not excluded. No acute intra-abdominal findings. RPTAT: HIKT .Joe Holman MD, MD Date Time Electronically viewed and signed by .Joe Holman MD, on 09/04/2016 01:36 .T/
[2016-09-04 02:12] LABS: URINE BLOOD (Dip) POC Trace-intact (NEGATIVE)
[2016-09-04] MEDS ORDERED: ONDA4TAB14 PO (02:19)
[2016-09-04 02:31] VITALS: BP 112/80; PULSE 66; RESP 17
== END 2016-09-04 02:31 | disposition home or self-care (01) ==
LOC: E/R 22:29
DX: R10.84 Generalized abdominal pain (principal); E86.0 Dehydration
CPT/HCPCS: 36415; 71010; 74177; 80053; 81003; 83690; 85025; 96374; 96375; 99285; J1170; J2405; J7030; Q9967; Z7610